=== PATIENT | female | born 1995 | race Caucasian/White ===

== ENCOUNTER 2019-05-25 15:34 | Emergency (ER) | payer BC ==
[~2019-05-25] VITALS: Ht 172.7 cm; Wt 53.9 kg
[~2019-05-25 15:34] MED LIST: CEFD300C37 PO; LACO200T PO; LEVE100020 PO; LEVE500T53 PO; LEVO1TBD5 PO; LORA2TAB99 PO; METH750T2 PO; ONDA4TAB10 PO; ONDA4TAB7 PO; OXYC-432 PO; PROM50AM6 PO; TIZA4CAP PO; TOPI100T24 PO
[2019-05-25 15:47] VITALS: BP 138/87
--- NOTE | 2019-05-25 16:08 | NUR ---
PT HERE WITH C/O RIGHT UPPER JAW PAIN AND SWELLING. PT STATES SHE DENIES HAVING A DENTIST.
[2019-05-25] MEDS ORDERED: HYDROcodone/APAP 5/325 TABLET PO ONE (16:30)
--- NOTE | 2019-05-25 16:38 | NUR ---
Patient/Caregiver given discharge instructions and they have confirmed that they understand the instructions. Patient ambulatory with steady gait.
== END 2019-05-25 16:40 | disposition home or self-care (01) ==
LOC: ED 16:30
DX: K02.9 Dental caries, unspecified (principal); R51 Headache; F17.200 Nicotine dependence, unspecified, uncomplicated; Z72.9 Problem related to lifestyle, unspecified
CPT/HCPCS: 99283

== ENCOUNTER 2020-11-08 10:25 | Inpatient (IN) | payer BC, MEDICAID ==
[~2020-11-08] VITALS: Ht 172.7 cm; Wt 69.9 kg
[~2020-11-08 10:25] MED LIST changes: +METH-640 PO; -METH750T2 PO; -OXYC-432 PO; +OXYC1TAB18 PO
--- NOTE | 2020-11-08 10:36 | NUR ---
PT BIB EMS FROM [facility] FOR [place] SINCE FRIDAY. PT ALSO REPORTS SHE HAD A SZ THIS MORNING. PT HAS HX OF SZ AND TAKES KEPPRA FOR IT. PT RECIEVED 4MG ZOFRAN AND ABOUT 250 ML NS PROCEDURE RN. PT RESTING IN [facility]. SIDERAILS UP. SZ PRECATUIONS IN PLACE
[2020-11-08] MEDS ORDERED: MAALOX/HYOSCYAMINE/LIDOCAINE 45 ML BTL ONE (10:49)
[2020-11-08] MEDS ORDERED: FAMOTIDINE 20 MG/2 ML ONE (10:49)
[2020-11-08] MEDS ORDERED: ONDANSETRON 2MG/ML, 2ML ONE (10:49)
[2020-11-08] MEDS ORDERED: LEVETIRACETAM 1,000 MG in SODIUM CHLORIDE 0.9% 100 ML IV ONE (11:00)
[2020-11-08] MEDS ORDERED: ONDANSETRON 2MG/ML, 2ML IVPush ONE (11:00)
[2020-11-08] MEDS ORDERED: SODIUM CHLORIDE FLUSH 10ML SYR IVF ONE (11:00)
[2020-11-08] MEDS ORDERED: FAMOTIDINE 20 MG/2 ML IVPush ONE (11:00)
[2020-11-08] MEDS ORDERED: SODIUM CHLORIDE 0.9% 1,000ML IVBOLUS ONE (11:00)
[2020-11-08 11:17] LABS: BASOPHILS % (AUTO) 1 % (0-1); EOSINOPHILS % (AUTO) 0 % (1-7); LYMPHOCYTES % (AUTO) 14 % (22-44); MEAN CORPUSCULAR HEMOGLOBIN 31.6 pg (27.0-34.8); MEAN CORPUSCULAR HGB CONC 34.5 g/dL (32.4-35.8); MEAN PLATELET VOLUME 7.6 fL (7.4-10.4); MONOCYTES % (AUTO) 7 % (2-9); NEUTROPHILS % (AUTO) 79 % (42-75); PLATELET COUNT 295 x10^3/uL (130-400); RED BLOOD COUNT 4.36 x10^6/uL (3.82-5.3); RED CELL DISTRIBUTION WIDTH 12.9 % (9.6-15.2)
--- NOTE | 2020-11-08 11:22 | NUR ---
MEDICATED PER MAR
[2020-11-08 11:25] LABS: ALANINE AMINOTRANSFERASE 56 U/L (12-78); ALBUMIN 3.3 g/dL (3.4-5.0); ANION GAP 12 mmol/L (5-15); CALCIUM 8.6 mg/dL (8.5-10.1); CHLORIDE 102 mmol/L (98-107)
[2020-11-08 11:30] LABS: ALKALINE PHOSPHATASE 92 U/L (45-117); BILIRUBIN,TOTAL 0.6 mg/dL (0.2-1.0); TOTAL PROTEIN 7.5 g/dL (6.4-8.2)
[2020-11-08] MEDS ORDERED: POTASSIUM CHLORIDE 10% 40 MEQ/30 ML UDC PO ONE (12:30)
[2020-11-08] MEDS ORDERED: MAGNESIUM SULFATE 1 GM in SODIUM CHLORIDE 0.9% 50 ML IV ONE (12:30)
[2020-11-08] MEDS ORDERED: MAGNESIUM SULFATE/D5W 100 ML ONE (12:36)
[2020-11-08] MEDS ORDERED: KETOROLAC 30 MG/1 ML ONE (12:55)
[2020-11-08] MEDS ORDERED: KETOROLAC 30 MG/1 ML IVPush ONE (13:00)
[2020-11-08] MEDS ORDERED: MAALOX/HYOSCYAMINE/LIDOCAINE 45 ML BTL PO ONE (13:00)
--- NOTE | 2020-11-08 13:09 | NUR ---
[facility] INFUSING.
[2020-11-08] MEDS ORDERED: MAGNESIUM SULFATE/D5W 100 ML IV ONE (13:30)
[2020-11-08] MEDS ORDERED: LORazepam 2 MG/ML, 1ML ONE (13:51)
[2020-11-08] MEDS ORDERED: LORazepam 2 MG/ML, 1ML IVPush ONE (14:00)
--- NOTE | 2020-11-08 14:31 | NUR ---
PT REPORTS VOMITTING IN BED. NOTFIED. PT TO ADMITTED
--- NOTE | 2020-11-08 14:32 | NUR ---
PT EDUCATED ON THAT SHE NEEDS TO STAY IN BED FOR HER OWN SAFETY.
[2020-11-08] MEDS ORDERED: POTASSIUM CHLORIDE 40 MEQ in SODIUM CHLORIDE 0.9% 1,000 ML IV ONE (15:00)
--- NOTE | 2020-11-08 15:00 | NUR ---
REPORT FROM GEENA BASS
[2020-11-08] MEDS ORDERED: GUAIFENESIN/DM 200-20MG, 10ML UDC PO PRN (16:00)
[2020-11-08] MEDS ORDERED: ACETAMINOPHEN 325 MG TABLET PO PRN (16:00)
[2020-11-08] MEDS ORDERED: ONDANSETRON 2MG/ML, 2ML IVPush PRN (16:00)
[2020-11-08] MEDS ORDERED: ENALAPRILAT 1.25 MG/ML, 2ML IVPush PRN (16:00)
[2020-11-08] MEDS ORDERED: NS + 40MEQ KCL 1,000 ML IV ONE (16:01)
--- NOTE | 2020-11-08 16:13 | NUR ---
PT REQUESTING ATIVAN AND NAUSEA MEDICATION FOR NAUSEA "THAT ISN'T GOING AWAY".
[2020-11-08] MEDS ORDERED: PROMETHAZINE 25 MG/ML, 1ML ONE (16:43)
--- NOTE | 2020-11-08 16:48 | NUR ---
REPORT GIVEN TO SIGIFREDO BASS
[2020-11-08] MEDS: PROMETHAZINE 25 MG/ML, 1ML IM PRN (16:49)
--- NOTE | 2020-11-08 16:55 | NUR ---
US AT BEDSIDE
[2020-11-08 17:45] VITALS: BP 109/69
[2020-11-08] MEDS: HEPARIN 5,000 UNITS/ML, 1ML SQ SCH (19:07)
[2020-11-08 19:28] LABS: MICROSCOPIC INDICATED
[2020-11-08] MEDS: LORazepam 2 MG/ML, 1ML IVPush PRN (19:56)
[2020-11-08] MEDS: LEVETIRACETAM 500 MG TABLET PO SCH (19:56)
[2020-11-08] MEDS: NS + 20MEQ KCL 1,000 ML IV SCH (19:56)
[2020-11-08 20:00] VITALS: BP 107/73
[2020-11-08] MEDS: LACOSAMIDE 200 MG TAB PO SCH (21:00)
[2020-11-08] MEDS: MELATONIN 5 MG TABLET PO PRN (21:58)
[2020-11-08] MEDS ORDERED: LEVO1TBD PO (22:26)
[2020-11-09] MEDS: HEPARIN 5,000 UNITS/ML, 1ML SQ SCH ×3 (01:45→17:36)
[2020-11-09 02:00] VITALS: BP 125/73
[2020-11-09] MEDS: NS + 20MEQ KCL 1,000 ML IV SCH (05:10)
[2020-11-09 05:39] LABS: BASOPHILS % (AUTO) 1 % (0-1); EOSINOPHILS % (AUTO) 0 % (1-7); LYMPHOCYTES % (AUTO) 40 % (22-44); MEAN CORPUSCULAR HEMOGLOBIN 31.6 pg (27.0-34.8); MEAN PLATELET VOLUME 7.4 fL (7.4-10.4); MONOCYTES % (AUTO) 7 % (2-9); NEUTROPHILS % (AUTO) 52 % (42-75); PLATELET COUNT 246 x10^3/uL (130-400); RED BLOOD COUNT 3.76 x10^6/uL (3.82-5.3); RED CELL DISTRIBUTION WIDTH 13.1 % (9.6-15.2)
[2020-11-09 05:49] LABS: CHLORIDE 113 mmol/L (98-107)
[2020-11-09 05:56] LABS: ALANINE AMINOTRANSFERASE 35 U/L (12-78); ALBUMIN 2.5 g/dL (3.4-5.0); ALKALINE PHOSPHATASE 69 U/L (45-117); ANION GAP 7 mmol/L (5-15); BILIRUBIN,TOTAL 0.5 mg/dL (0.2-1.0); CALCIUM 7.7 mg/dL (8.5-10.1); CREATININE 0.36 mg/dL (0.55-1.02); TOTAL PROTEIN 5.8 g/dL (6.4-8.2)
[2020-11-09 07:30] VITALS: BP 107/73
[2020-11-09] MEDS: PANTOPRAZOLE 40 MG IV IVPush SCH (08:57)
[2020-11-09] MEDS: LEVETIRACETAM 500 MG TABLET PO SCH ×2 (08:57→20:04)
[2020-11-09] MEDS: LACOSAMIDE 200 MG TAB PO SCH ×2 (08:58→20:05)
[2020-11-09] MEDS: LORazepam 2 MG/ML, 1ML IVPush PRN ×3 (11:17→21:43)
[2020-11-09] MEDS: K-PHOS NEUTRAL 250MG TAB PO SCH ×2 (11:17→20:05)
[2020-11-09] MEDS: CEFTRIAXONE 2 GM in DEXTROSE 5% 50 ML IVPB SCH (11:17)
[2020-11-09 11:47] LABS: FREE T4 (FREE THYROXINE) 1.56 ng/dL (0.76-1.46)
[2020-11-09] MEDS: PROMETHAZINE 25 MG/ML, 1ML IM PRN (13:20)
[2020-11-09 13:49] VITALS: BP 120/85
[2020-11-09] MEDS: morphine SULFATE 10 MG/ML, 1ML IVPush PRN ×2 (14:29→20:06)
[2020-11-09 19:26] VITALS: BP 123/85
[2020-11-09] MEDS: MELATONIN 5 MG TABLET PO PRN (21:43)
[2020-11-10] MEDS: HEPARIN 5,000 UNITS/ML, 1ML SQ SCH ×2 (02:27→09:08)
[2020-11-10 03:55] VITALS: BP 139/64
[2020-11-10 07:28] VITALS: BP 114/76
[2020-11-10] MEDS: LEVETIRACETAM 500 MG TABLET PO SCH (07:44)
[2020-11-10] MEDS: LACOSAMIDE 200 MG TAB PO SCH (07:45)
[2020-11-10] MEDS: K-PHOS NEUTRAL 250MG TAB PO SCH (07:46)
[2020-11-10] MEDS: PANTOPRAZOLE 40 MG IV IVPush SCH (07:46)
[2020-11-10] MEDS: morphine SULFATE 10 MG/ML, 1ML IVPush PRN (09:08)
[2020-11-10 09:14] LABS: BASOPHILS % (AUTO) 1 % (0-1); EOSINOPHILS % (AUTO) 1 % (1-7); LYMPHOCYTES % (AUTO) 31 % (22-44); MEAN CORPUSCULAR HEMOGLOBIN 31.8 pg (27.0-34.8); MEAN CORPUSCULAR HGB CONC 34.3 g/dL (32.4-35.8); MEAN PLATELET VOLUME 7.2 fL (7.4-10.4); MONOCYTES % (AUTO) 7 % (2-9); NEUTROPHILS % (AUTO) 61 % (42-75); PLATELET COUNT 286 x10^3/uL (130-400)
[2020-11-10 09:15] LABS: ALANINE AMINOTRANSFERASE 33 U/L (12-78); ALBUMIN 2.8 g/dL (3.4-5.0); ANION GAP 8 mmol/L (5-15); CALCIUM 8.5 mg/dL (8.5-10.1); CHLORIDE 109 mmol/L (98-107); CREATININE 0.42 mg/dL (0.55-1.02)
[2020-11-10 09:18] LABS: ALKALINE PHOSPHATASE 79 U/L (45-117); BILIRUBIN,TOTAL 0.4 mg/dL (0.2-1.0); TOTAL PROTEIN 6.5 g/dL (6.4-8.2)
[2020-11-10] MEDS: LORazepam 2 MG/ML, 1ML IVPush PRN (11:26)
[2020-11-10] MEDS: CEFTRIAXONE 2 GM in DEXTROSE 5% 50 ML IVPB SCH (11:26)
[2020-11-10 12:10] VITALS: BP 117/84
[2020-11-10] MEDS ORDERED: PHOS250T PO (14:13)
[2020-11-11] MEDS ORDERED: PANTOPRAZOLE 40MG TABLET PO SCH (06:00)
== END 2020-11-10 15:20 | disposition home or self-care (01) | DRG 254 ==
LOC: ED 11:10 → 4EST 17:42
PROVIDERS: ADMIT Hospitalist; ATTEND Hospitalist
DX: K31.84 Gastroparesis (principal); E87.1 Hypo-osmolality and hyponatremia; R11.15 Cyclical vomiting syndrome unrelated to migraine; E86.0 Dehydration; E87.6 Hypokalemia; F12.90 Cannabis use, unspecified, uncomplicated; G40.909 Epilepsy, unspecified, not intractable, without status epilepticus; Z80.8 Family history of malignant neoplasm of other organs or systems; Z90.49 Acquired absence of other specified parts of digestive tract; Z79.3 Long term (current) use of hormonal contraceptives
CPT/HCPCS: 36415; 76700; 80053; 81001; 83690; 83735; 84100; 84439; 84443; 84481; 84703; 85025; 87040; 87086; 96361; 96365; 96375; G0378; J0696; J1644; J1885; J1953; J2405; J2550; J3480; C9113; J2060; J2270; J7030